=== PATIENT | female | born 1960 | race Caucasian/White ===

== ENCOUNTER 2019-01-12 15:30 | Outpatient (REF) | payer MEDICAID, SELFPAY ==
--- NOTE | 2019-01-12 15:00 | PAPFT_PTH ---
PATIENT: Reji Martini LOC: [facility] U#:[id number] AGE/SX: 58/F ROOM: RE01/12/[address]: Tawana Au : 1960 BED: DIS: 01/12/2019 SPEC #: [id number] RECD: 01/12/19 18:17 STATUS: KRUNAL REQ #: [id number] MALINDA: 01/12/19 15:[address]: Tawana Au DEPT: [facility] Cytology RECD BY: Andreea Laurent Tissues: 1 - CX/ENDOCX FOR PAP SMEARS Procedures: PAP THIN PREP/UVM Screening HPV DNA PROBE Comments: [id number]
== END 2019-01-12 15:50 ==
LOC: NCHCN 15:30
PROVIDERS: PCP Nurse Practitioner Family; Visit Provider Nurse Practitioner Family
DX: Z12.4 Encounter for screening for malignant neoplasm of cervix (principal); Z11.51 Encounter for screening for human papillomavirus (HPV); Z00.00 Encounter for general adult medical examination without abnormal findings
CPT/HCPCS: 88142; 87624

== ENCOUNTER 2019-01-24 12:23 | Outpatient (REF) | payer MEDICAID, SELFPAY ==
[2019-01-24 13:27] LABS: Calculated LDL 201 mg/dL; Cholesterol 295 mg/dL (50-200); Glucose 104 mg/dL (70-100); HDL Cholesterol 74 mg/dL (40-60); Triglyceride 103 mg/dL (30-150)
== END 2019-01-24 12:43 ==
LOC: NCHCN 12:23
PROVIDERS: PCP Nurse Practitioner Family; Visit Provider Nurse Practitioner Family
DX: Z13.1 Encounter for screening for diabetes mellitus (principal); Z13.220 Encounter for screening for lipoid disorders
CPT/HCPCS: 80061; 82947

== ENCOUNTER 2019-02-08 00:36 | Outpatient (CLI) | payer MEDICAID, SELFPAY ==
--- NOTE | 2019-02-08 12:43 | DI.MAMMO_ITS ---
EXAM: MG MAMMO SCREENING 60 MIN DUR CLINICAL HISTORY: SCREENING Z12.39, HAS IMPLANTS TECHNIQUE: Bilateral full field digital CC and MLO mammographic images with and without implant disp lacement were obtained with 3D tomosynthesis and utilizing computer aided detection (CAD). COMPARISON: No exams were available for comparison FINDINGS: Bilateral full field digital CC and MLO mammographic images with and without implant displacement wer e obtained with 3D tomosynthesis and utilizing computer aided detection (CAD). Masses/Architectural Distortion: None seen. Microcalcifications: No suspicious pleomorphic-type microcalcifications are seen. Skin thickening/Nipple Retraction: None. Implants: The implant capsules appear intact. An MRI can be considered for better evaluation of impl ant rupture. Impression: 1. No significant interval change with no specific features of malignancy noted. 2. Unless there is more urgent need, screening mammography is recommended, as per [place] [employer] guidelines. ACR BI-RAD Category- 1 Negative Breast Density - Category B - Scattered areas of fibroglandular density A negative radiographic report should not delay biopsy if a dominant or clinically suspicious mass is present. Up to ten percent of cancers are not identified on mammography. A negative report may reinforce clinical impression. Adenosis and dense breasts may obscure an underlying neoplasm. False positive reports average 6 to 10%. Patient will receive a letter notifying them of these results.
== END 2019-02-08 00:56 ==
PROVIDERS: PCP Nurse Practitioner Family; Visit Provider Nurse Practitioner Family
DX: Z12.31 Encounter for screening mammogram for malignant neoplasm of breast (principal); Z98.82 Breast implant status
CPT/HCPCS: 77063; 77067

== ENCOUNTER 2020-01-23 19:37 | Outpatient (REF) | payer SELFPAY ==
[2020-01-23 18:29] LABS: HCT 38.4 % (36.0-46.0); HGB 12.4 g/dL (11.2-15.7); MCH 28.8 pg (27.0-33.0); MCHC 32.3 % (32.0-36.0); MCV 89.3 fL (80-95); MPV 13.3 fL (8.0-11.0); Platelet Count 221 10^3/uL (130-400); RDW 13.2 % (11.7-14.6); RDW-SD 43.5 fL; WBC 4.99 10^3/uL (4.4-10.8)
[2020-01-23 18:34] LABS: Anion Gap 5.8 mmol/L (3-11); BUN 17 mg/dL (7-18); CO2 28.2 mmol/L (21.0-32.0); CREATININE 0.95 mg/dL (0.55-1.02); Calcium 9.3 mg/dL (8.5-10.1); Calculated LDL 219 mg/dL (<100); Chloride 105 mmol/L (98-107); Cholesterol 315 mg/dL (<200); Glucose 94 mg/dL (74-106); HDL Cholesterol 73 mg/dL (40-60); Potassium 4.5 mmol/L (3.5-5.1); Sodium 139 mmol/L (136-145); Triglyceride 119 mg/dL (<150)
== END 2020-01-23 19:57 ==
LOC: NCHCN 19:37
PROVIDERS: PCP Nurse Practitioner Family; Visit Provider Nurse Practitioner Family
DX: Z00.00 Encounter for general adult medical examination without abnormal findings (principal); E78.5 Hyperlipidemia, unspecified
CPT/HCPCS: 80048; 80061; 85027

== ENCOUNTER 2021-04-03 03:13 | Outpatient (CLI) | payer OTHER, SELFPAY ==
--- NOTE | 2021-04-03 08:00 | DI.MAMMO_ITS ---
Exam(s) US AXILLA LT MAMMO DIAGNOSTIC BI EXAM: MAMMO DIAGNOSTIC BI and U/S axilla LT CLINICAL HISTORY: left axillary mass,r22.32, implants. TECHNIQUE: Craniocaudal and mediolateral oblique Full Field Digital Mammography views with Computer Aided Diagnosis followed by Tomosynthesis and left axillary ultrasound. COMPARISON: Comparison with prior examinations. FINDINGS: Mammography/Tomosynthesis: Masses/Architectural Distortion: None seen. There are bilateral breast implants. Microcalcifictions: No suspicious pleomorphic-type are seen. Skin Thickening/Nipple Retraction: None. Left axillary US: Echotexture: Normal appearance of the glandular tissue. Shadowing: No suspicious foci. Cyst: None. Solid lesions: Lymph nodes are seen in the axilla. Several of the lymph nodes show normal sonographi yuliana benign appearance there is there is an enlarged lymph node measuring 2.7 x 1.6 cm which shows i ncreased echogenicity in the hilum with incoherent posterior shadowing. This can be seen in patients with silicone implants and may reflect current or prior rupture or microscopic leak. Ductal dilation: None. IMPRESSION: 1. No evidence of malignancy is noted. 2. Left axillary lymph nodes. There is an enlarged lymph node with a snowstorm appearance and incohe rent incoherent posterior shadowing. This can be seen in patients with silicone implants reflecting current or prior rupture or microscopic leak. 3. Unless there is more urgent need, follow-up screening mammography is recommended, as per [employer] [place] [employer] guidelines. 4. The findings were discussed with the patient on the date of the examination. BI-RADS Category 2 - Benign Findings Breast Density - Category B - Scattered areas of fibroglandular density Breast density Category C or D implies that the patient has dense breast tissue. Dense breast tissue can make it harder to find cancer on a mammogram. Dense breast tissue is also associated with an incr eased risk of breast cancer. This information about the result of the mammogram report was provided to the patient to raise their awareness. Use this report when you speak with the patient about their risks for breast cancer, which includes their family history. At that time, you may recommend additional screening tests (Ultrasoun d or MRI) as these tests may add significant information. A negative radiographic report should not delay biopsy if a dominant or clinically suspicious mass is present. Up to ten percent of cancers are not identified on mammography. A negative report may reinforce clinical impression. Adenosis and dense breasts may obscure an underlying neoplasm. False positive reports average 6 to 10%. Patient will receive a letter notifying them of these results.
== END 2021-04-03 03:33 ==
PROVIDERS: PCP Nurse Practitioner Family; Visit Provider Surgery
DX: R22.32 Localized swelling, mass and lump, left upper limb (principal); R22.30 Localized swelling, mass and lump, unspecified upper limb; Z98.82 Breast implant status; R59.0 Localized enlarged lymph nodes
CPT/HCPCS: 76642; 77062; 77066; G0279

== ENCOUNTER 2021-05-16 19:07 | Outpatient (REF) | payer OTHER, SELFPAY ==
[2021-05-16 15:47] LABS: HCT 39.3 % (36.0-46.0); HGB 12.5 g/dL (11.2-15.7); MCH 28.9 pg (27.0-33.0); MCHC 31.8 % (32.0-36.0); MCV 90.8 fL (80-95); Platelet Count 236 10^3/uL (130-400); RBC 4.33 10^6/uL (3.93-5.22); RDW 12.8 % (11.7-14.6); RDW-SD 42.8 fL; WBC 5.68 10^3/uL (4.4-10.8)
[2021-05-16 16:03] LABS: Anion Gap 8.6 mmol/L (3-11); BUN 16 mg/dL (7-18); CO2 27.4 mmol/L (21.0-32.0); CREATININE 0.9 mg/dL (0.55-1.02); Calcium 9.3 mg/dL (8.5-10.1); Calculated LDL 233 mg/dL (<100); Chloride 105 mmol/L (98-107); Cholesterol 335 mg/dL (<200); Glucose 89 mg/dL (74-106); HDL Cholesterol 86 mg/dL (40-60); Potassium 4.9 mmol/L (3.5-5.1); Sodium 141 mmol/L (136-145); Triglyceride 82 mg/dL (<150)
[2021-05-16 16:07] LABS: Hemoglobin A1C 5.8 % (<5.7)
== END 2021-05-16 19:08 | disposition home or self-care (01) ==
LOC: NCHCN 19:07
PROVIDERS: PCP Nurse Practitioner Family; Visit Provider Nurse Practitioner Family
DX: E78.5 Hyperlipidemia, unspecified (principal); R73.03 Prediabetes; Z00.00 Encounter for general adult medical examination without abnormal findings
CPT/HCPCS: 80048; 80061; 85027; 83036

== ENCOUNTER 2022-02-17 17:37 | Outpatient (REF) | payer OTHER, SELFPAY ==
[2022-02-17 18:32] LABS: Calculated LDL 209 mg/dL (<100); Cholesterol 313 mg/dL (<200); HDL Cholesterol 83 mg/dL (40-60); Triglyceride 108 mg/dL (<150)
[2022-02-17 18:45] LABS: Hemoglobin A1C 6.2 % (<5.7)
== END 2022-02-17 17:38 | disposition home or self-care (01) ==
LOC: NCHCN 17:37
PROVIDERS: PCP Nurse Practitioner Family; Visit Provider Nurse Practitioner Family
DX: R73.03 Prediabetes (principal); E78.5 Hyperlipidemia, unspecified
CPT/HCPCS: 80061; 83036

== ENCOUNTER 2022-04-17 00:08 | Outpatient (CLI) | payer OTHER, SELFPAY ==
--- NOTE | 2022-04-17 | DI.MAMMO_ITS ---
Exam(s) MAMMO SCREENING EXAM: MAMMO SCREENING CLINICAL HISTORY: SCREENING, Z12.39 TECHNIQUE: Bilateral full field digital CC and MLO mammographic images were obtained with 3D tomosyn thesis and utilizing computer aided detection (CAD). COMPARISON: Available for comparison. FINDINGS: There has been interval removal of the patient's bilateral breast implants. Masses/Architectural Distortion: None seen. Microcalcifications: No suspicious pleomorphic-type are seen. Skin Thickening/Nipple Retraction: None. IMPRESSION: 1. No significant interval change with no specific features of malignancy noted. 2. Unless there is more urgent need, screening mammography is recommended, as per [place] [employer] guidelines. BI-RADS Category 1 - Negative Breast Density - Category B - Scattered areas of fibroglandular density Breast density category C or D implies that the patient has dense breast tissue. Dense breast tissue is very common and is not abnormal but dense breast tissue can make it harder to find cancer on a ma mmogram. Also, dense breast tissue may increase their breast cancer risk. This information about the result of the mammogram report was provided to the patient to raise their awareness. Use this report when you speak with the patient about their risks for breast cancer, which includes their family hist ory. At that time, you may recommend for more screening tests (Ultrasound or MRI) as they might be us eful based on their risk. A negative radiographic report should not delay biopsy if a dominant or clinically suspicious mass is present. Up to ten percent of cancers are not identified on mammography. A negative report may reinforce clinical impression. Adenosis and dense breasts may obscure an underlying neoplasm. False positive reports average 6 to 10%. Patient will receive a letter notifying them of these results.
== END 2022-04-17 00:28 ==
LOC: DI 00:08
PROVIDERS: PCP Nurse Practitioner Family; Visit Provider Nurse Practitioner Family
DX: Z12.31 Encounter for screening mammogram for malignant neoplasm of breast (principal); R92.8 Other abnormal and inconclusive findings on diagnostic imaging of breast
CPT/HCPCS: 77063; 77067

== ENCOUNTER 2022-05-27 16:59 | Outpatient (REF) | payer OTHER, SELFPAY ==
[2022-05-27 15:22] LABS: Calculated LDL 84 mg/dL (<100); Cholesterol 177 mg/dL (<200); HDL Cholesterol 76 mg/dL (40-60); Triglyceride 86 mg/dL (<150)
== END 2022-05-27 17:00 | disposition home or self-care (01) ==
LOC: NCHCN 16:59
PROVIDERS: PCP Nurse Practitioner Family; Visit Provider Nurse Practitioner Family
DX: E78.5 Hyperlipidemia, unspecified (principal)
CPT/HCPCS: 80061

== ENCOUNTER 2022-12-14 18:39 | Outpatient (REF) | payer OTHER, SELFPAY ==
[2022-12-14 22:55] LABS: Anion Gap 5.7 mmol/L (3-11); BUN 15 mg/dL (7-18); CO2 31.3 mmol/L (21.0-32.0); CREATININE 0.9 mg/dL (0.55-1.02); Calcium 9.9 mg/dL (8.5-10.1); Chloride 102 mmol/L (98-107); Cholesterol 311 mg/dL (<200); Estimated GFR 72.28 (mL/min/1.73m2); Glucose 102 mg/dL (74-106); HDL Cholesterol 66 mg/dL (40-60); Potassium 4.4 mmol/L (3.5-5.1); Sodium 139 mmol/L (136-145); Triglyceride 434 mg/dL (<150)
[2022-12-14 23:22] LABS: LDL CHOLESTEROL 158 mg/dL (<100)
== END 2022-12-14 18:40 | disposition home or self-care (01) ==
LOC: NCHCN 18:39
PROVIDERS: PCP Nurse Practitioner Family; Visit Provider Nurse Practitioner Family
DX: E78.5 Hyperlipidemia, unspecified (principal); R73.03 Prediabetes; G47.00 Insomnia, unspecified
CPT/HCPCS: 80048; 80061; 83721

== ENCOUNTER 2023-06-10 13:17 | Outpatient (REF) | payer OTHER, SELFPAY ==
[2023-06-10 21:51] LABS: Calculated LDL 177 mg/dL (<100); Cholesterol 267 mg/dL (<200); HDL Cholesterol 64 mg/dL (40-60); Triglyceride 134 mg/dL (<150)
[2023-06-10 22:09] LABS: Hemoglobin A1C 6.1 % (<5.7)
== END 2023-06-10 13:18 | disposition home or self-care (01) ==
LOC: NCHCN 13:17
PROVIDERS: Referring Provider Nurse Practitioner Family; Visit Provider Nurse Practitioner Family
DX: R73.03 Prediabetes (principal); E78.5 Hyperlipidemia, unspecified
CPT/HCPCS: 80061; 83036

== ENCOUNTER → 2023-07-12 05:16 | Outpatient (CLI) | payer OTHER, SELFPAY ==
--- NOTE | 2023-07-12 | DI.MAMMO_ITS ---
Exam(s) MAMMO SCREENING EXAM: MAMMO SCREENING CLINICAL HISTORY: SCREENING,Z12.39 TECHNIQUE: Mammograms were interpreted according to the usual protocol including computer analysis w [employer] CAD system, tomosynthesis and C-view imaging. COMPARISON: 2015 through 2022 FINDINGS: The breasts are composed of heterogeneously dense fibroglandular densities, Breast Density category C . No suspicious masses or suspicious microcalcifications are seen. No skin thickening is seen. Again noted are 2 areas of increased density in the left axillary region likely related to silicone from prior breast implants, removed in 2021. There has been no significant change from prior exams. IMPRESSION: BI-RADS category 2, negative mammogram with benign findings. Yearly screening mammography is recommended. Breast Density Category C, heterogeneously Dense. The mammogram demonstrates the patient's breast tissue is dense. Dense breast tissue is very common a nd is not abnormal but dense breast tissue can make it harder to find cancer on a mammogram. Also, de nse breast tissue may increase breast cancer risk. This information about the result of the mammogram report was provided to the patient to raise their awareness. Use this report when you speak with the patient about their risks for breast cancer, which includes their family history. At that time, you may recommend additional screening tests (Ultrasound or MRI) as they might be useful based on their r isk. A negative radiographic report should not delay biopsy if a dominant or clinically suspicious mass is present. Up to ten percent of cancers are not identified on mammography. A negative report may reinforce clinical impression. Adenosis and dense breasts may obscure an underlying neoplasm. False positive reports average 6 to 10%.
== END ==
PROVIDERS: Visit Provider Nurse Practitioner Family
DX: Z12.31 Encounter for screening mammogram for malignant neoplasm of breast (principal)
CPT/HCPCS: 77063; 77067

== ENCOUNTER 2023-10-20 06:02 | Day surgery (SDC) | payer OTHER, SELFPAY ==
--- NOTE | 2023-10-19 07:52 | LYM_PTH ---
PATIENT: Reji Martini LOC: [facility] U#:[id number] AGE/SX: 63/F ROOM: RE10/20/[address]: Aly Linares MD : 1960 BED: DIS: 10/20/2023 SPEC #: [id number] RECD: 10/20/23 12:50 STATUS: KRUNAL REQ #: [id number] MALINDA: 10/19/23 07:[address]: Aly Linares DEPT: Surgical Specimen RECD BY: Andreea Laurent ENTERED: 10/20/23 12:50 SP TYPE: LYM OTHR DR: JUAN J DAVE NP Tissues: 1 - LYMPH NODE BIOPSY Procedures: IMMUNOPEROXIDASE STAIN GROSS AND MICRO LEVEL 5 Comments: [id number]
--- NOTE | 2023-10-19 14:00 | W.PM.DSUDISC ---
Date of service: 10/20/23 Time of Service: 08:17 Discharge Plan Disposition Patient Disposition: Home Condition: Good Discharge Details Reason For Visit: Excision of left axillary mass Attending Provider: Aly Linares Primary Care Provider: JUAN J DAVE Home Meds and New Rx's Prescriptions: Continued zolpidem [Ambien] 5 mg tablet 5 mg PO QHS PRN ezetimibe 10 mg tablet 10 mg PO DAILY Discharge Instructions Additional Instructions: Reji, we were able to perform your procedure today just like we talked about. I was able to find the lump in your armpit, and completely remove it. Clinically, it appears to be some swollen lymph nodes. But I will certainly send this off to pathology for them to examine in more detail to provide a definitive diagnosis. The removal itself went very smoothly. Expect to have some swelling in your armpit, and perhaps some bruising, that may even extend down into your breast. That is extremely common. You have a Band-Aid on the surface, and all of the stitches are underneath of your skin and will be absorbed by your body. Please leave the Band-Aid in place until tomorrow. At that point, you can remove it, wash the incision with soap and water, and apply a new Band-Aid if needed. I have taken the liberty of scheduling a follow-up visit in our office on November 03 at 3:15 PM. I will not be available at that time, but one of my partners will take great care of you. Certainly, if the pathology shows anything worrisome, or that needs any other treatments, we will be in touch as soon as we have that information. 1. Resume all of your regular medications. 2. Alternate heating pads and ice packs as needed for pain 3. Alternate [id number]-irq-oismyil Tylenol and ibuprofen every 6 hours for the first 2 days, then use as needed. 4. Leave bandage in place for 24 hours, then remove. 5. Shower with warm soapy water. Pat dry. Use a bandaid if needed to protect your clothing. 6. No soaking or tub baths until I see you in the office. 7. No heavy lifting until I see you in the office. 8. Call the office (or go directly to the emergency room after hours) if you notice any of the following: Develop chills (warm to touch), or if you have a thermometer and your temperature is above 101 Difficulty breathing or difficultly swallowing Persistent vomiting Any bleeding ? exceeding one tablespoon 9. Call your physician if the site where your intravenous was started becomes red, swollen, painful, and warm to touch. Activity:: Activity as Tolerated Remove Dressings/Wound Care:: 24 hours Shower/Bathe:: 24 hours Diet:: As Tolerated Discharge Orders Discharge Orders: Discharge Order (Routine); Ordered 10/19/23 Ordered By: Aly Linares DS: Diagnosis Discharge Diagnosis (1) Axillary mass: Status: Acute Asessment and Plan: Status post excisional biopsy, follow-up on pathology and outpatient office visit
--- NOTE | 2023-10-19 14:03 | W.PREOPHP ---
Assessment and Plan Assessment and plan (1) Axillary mass: Status: Acute Assessment and plan: We reviewed the plan for excisional biopsy of left axillary mass, or at the very least incisional biopsy with sampling. I think she has a good understanding of all of this, what to expect. She was able to ask any other questions today. We can move forward with surgery as planned. Qualifiers: Laterality: left Qualified Code(s): R22.32 - Localized swelling, mass and lump, left upper limb History of Present Illness History of Present Illness Chief Complaint: Left axillary mass Narrative: Reji has a tender mass in the left axilla. She thinks it has been there for about 2 years, around the time that she had cosmetic breast implants removed. As best I understand, the implants were removed because of capsular disruption. Since then, she has noticed the lump in her armpit. It does tend to become more painful from time to time, especially associated with exercise. She denies any other lymphadenopathy anywhere else. Since her last visit, there have been no major changes with regards to the interval history, or physical exam. PFSH All Active Problems Pain in axilla (Acute) Ruptured silicone breast implant (Acute) Prediabetes (Acute) Axillary mass (Acute) Medical History History of removal of breast implant (~10/06/21) Hyperlipidemia Chronic headaches Chronic insomnia Surgical History Previous section S/P bilateral breast implants Social History Smoking/Tobacco Use Status: Former Tobacco Use Quit Date: 03/29/08 Smoking risk assessment performed?: Yes Alcohol Intake: current Alcohol Intake frequency: holidays/special occasions only Alcohol type: wine Drug use: Never Substance use type: does not use Housing: house Current gender identity: female Additional Social history: UTAP Meds Allergies and Home Medications Allergies Allergy/AdvReac Type Severity Reaction Status Date / Time No Known Allergies Allergy Verified 10/20/23 06:34 Home Medications ?Medication ?Instructions ?Recorded ?Confirmed ?Type zolpidem 5 mg tablet (Ambien) 5 mg PO QHS PRN 03/18/21 10/20/23 History ezetimibe 10 mg tablet 10 mg PO DAILY 06/28/23 10/20/23 History Exam Const General: cooperative, healthy appearing and not in acute distress Neck Neck: normal visual inspection, no lymphadenopathy and supple Thyroid: thyroid normal Resp Effort & Inspection: normal respiratory effort Auscultation: clear to auscultation bilaterally Cardio Jugular venous pressure: no JVD Rate: regular rate Rhythm: regular rhythm Heart Sounds: S1 normal and S2 normal Neuro General: patient alert, patient awake and patient oriented x3 Extrem Other: Firm, slightly mobile mass in the left axilla. Psych Appearance: grossly normal
--- NOTE | 2023-10-19 14:03 | W.PM.OP ---
Date of service: 10/20/23 Time of Service: 08:23 Operative Note Operative Note DATE OF PROCEDURE: 10/20/23 PRE-OP DIAGNOSIS: Left axillary mass POST-OP DIAGNOSIS: same PROCEDURE: Excisional biopsy of left axillary mass with primary closure SURGEON: Aly Linares THRESHING DEPARTMENT SUPERVISOR: Carla Valente ANESTHESIA TYPE: Local By Surgeon and General LMA/ETT Refer to Anesthesia Record ESTIMATED BLOOD LOSS: 10 PATHOLOGY: other (Left axillary mass) COMPLICATIONS: None Patient was transported to: PACU Patient's condition: stable Indications: Reji is a 63-year-old woman with a tender left axillary mass. Findings: Left axillary mass clinically suggestive of lymphadenopathy Procedure Description: After the induction of general endotracheal anesthesia, the left arm was abducted at the shoulder. This was placed on an armboard, and supported at the wrist level. Great care was taken to make sure that it was supported and padded appropriately. I then prepped and draped the left axilla. I anesthetized the skin, and I made an incision in the armpit just behind to the anterior axillary line. I dissected down through the subcutaneous fat towards the palpable mass. This seem to be inferior to the axillary vein, and between the thoracodorsal bundle and the pectoralis minor. As I dissected away the surrounding axillary fat, there was a well-circumscribed slightly nodular bundle of soft tissue. Had clinical features that seem consistent with at least 1, or more likely 2-3 lymph nodes. Great care was taken to dissect this away from the surrounding soft tissue. The deeper layers were controlled with a medium clip continuous process tanner rotary drum. Cautery was used to from the surrounding tissues and is passed off the field as a left axillary mass. Small amount of bleeding from the posterior tissue was easily controlled with [id number] Vicryl suture surgical site was then irrigated. Electrocautery was used to control some tiny blood vessels. The wound was irrigated again, and appeared hemostatic. Deep layer was closed with interrupted 3-0 Vicryl stitches. The superficial layer was then closed with interrupted stitches as well. The skin layer was closed with a running subcuticular stitch. Bandages were applied, the patient was allowed awaken from anesthesia and transferred to the recovery room.
[2023-10-20] VITALS (27 sets, daily range): BP systolic 105–126; BP diastolic 48–76; PULSE 61–87; RESP 6–28; TEMP 36–36.4; O2SAT 85–100; BMI 23.8
[2023-10-20] MEDS: Celecoxib 200 MG CAP 400 MG PO (06:47)
[2023-10-20] MEDS: Gabapentin 300 MG CAP 600 MG PO (06:47)
[2023-10-20] MEDS: Acetaminophen 500 MG TAB 1000 MG PO (06:47)
--- NOTE | 2023-10-20 06:49 | W.ANESPRE ---
General Info Date of Service Date Performed: 10/20/23 Height: 5 ft 5 in Weight: 65 kg Body Mass Index (BMI): 23.8 Surgical Procedure: Operation Date: 10/20/23 07:40 Proposed Procedure Side Surgeon p Excisional Biopsy Axillary Mass Left Aly Linares MD Meds Allergies and Home Medications Allergies Allergy/AdvReac Type Severity Reaction Status Date / Time No Known Allergies Allergy Verified 10/20/23 06:34 Home Medication ?Medication ?Instructions ?Recorded zolpidem 5 mg tablet (Ambien) 5 mg PO QHS PRN 03/18/21 ezetimibe 10 mg tablet 10 mg PO DAILY 06/28/23 Current Visit Medications: Current Medications Generic Name Dose Route Start Last Admin Trade Name Freq PRN Reason Stop Dose Admin Acetaminophen 1,000 mg 10/20/23 06:00 10/20/23 06:47 Acetaminophen 500 Mg Tab PO 10/20/23 23:59 1,000 mg PREOP GALINA Administration Celecoxib 400 mg 10/20/23 06:00 10/20/23 06:47 Celecoxib 200 Mg Cap PO 10/20/23 23:59 400 mg PREOP GALINA Administration Gabapentin 600 mg 10/20/23 06:00 10/20/23 06:47 Gabapentin 300 Mg Cap PO 10/20/23 23:59 600 mg PREOP GALINA Administration Hydromorphone HCl 2 mg 10/19/23 14:04 Hydromorphone 2 Mg Tab PO 11/18/23 14:03 Q4H PRN PRN Pain Ringer's Solution 1,000 mls @ 80 mls/hr 10/20/23 06:00 IV 10/20/23 23:59 INFUSION GALINA Cefazolin Sodium/Dextrose 2 gm in 50 mls @ 100 mls/hr 10/20/23 06:00 Ancef Duplex IVPB 10/20/23 23:59 PREOP GALINA IV Miscellaneous Supplies 1 each 10/20/23 06:00 Iv Access IV 10/20/23 23:59 DIRECTED GALINA Sodium Chloride 0 ml 10/20/23 06:00 Normal Saline Flush 10 Ml Syr IV 10/20/23 23:59 PRN PRN Sodium Chloride 0 ml 10/20/23 06:00 Normal Saline 10 Ml Vial IJ 10/20/23 23:59 DIRECTED PRN Sterile Water 0 ml 10/20/23 06:00 Water,Injection,Sterile 10 Ml Vial IJ 10/20/23 23:59 DIRECTED PRN Tramadol HCl 50 mg 10/19/23 14:04 Tramadol 50 Mg Tab PO 11/18/23 14:03 Q6H PRN PRN Pain PFSH Active Problems Active Problems: Problem Status Onset Code Pain in axilla Acute M79.629 Ruptured silicone breast implant Acute T85.43XA Prediabetes Acute R73.03 Axillary mass Acute R22.30 Medical History Medical History History of removal of breast implant (~10/06/21) Hyperlipidemia Chronic headaches Chronic insomnia Surgical History Surgical History Previous section S/P bilateral breast implants Tobacco Smoking/Tobacco Use Status: Former Tobacco Use Alcohol Alcohol Intake: current Alcohol intake frequency: holidays/special occasions only Alcohol type: wine Substance Use Substance use: Never Substance use type: does not use Vital Signs and Lab Results Vital Signs Most Recent Vital Signs in EMR: Most Recent Vital Signs Temp Pulse Resp BP Pulse Ox 36.4 C L 86 16 126/74 99 10/20/23 06:37 10/20/23 06:37 10/20/23 06:37 10/20/23 06:37 10/20/23 06:37 Lab Results Blood Type / Crossmatch: No Data to Display Complete Blood Count: No Data to Display Complete Metabolic Panel: No Data to Display Liver Function Panel: No Data to Display Coagulation Panel: No Data to Display Cardiac Panel: No Data to Display Arterial Blood Gas: No Data to Display Venous Blood Gas: No Data to Display Pancreas Panel: No Data to Display Thyroid Panel: No Data to Display Infectious Disease: No Data to Display Blood Cultures: No Data to Display Toxicology Panel: No Data to Display Anesthesia Assessment and Plan Anesthesia History Personal History: No History of Anesthesia Complications Family History: Family History Unknown Exercise Tolerance Exercise Tolerance: Metabolic Equivalents>4 Pertinent Negatives Pertinent Negatives: No Symptoms of GERD Cardiac & Pulmonary Exam Cardiac Exam: Normal S1/S2 Heart Sounds Pulmonary Exam: Clear Bilateral Breath Sounds Implantable Cardiac Device Does patient have a Pacemaker or an ICD?: No Airway Exam Known Difficult Airway: No Mallampati Class: 2 Mouth Opening: Normal (> 3cm) Thyromental Distance: Greater than 3 cm Neck Range of Motion: Full ROM Neck Circumference: Normal Teeth Condition: Normal Dentition and Removable Dentures/Plates Upper (left at home) ASA Classification ASA Score: ASA 2 Emergency Case?: No NPO Status NPO Status: NPO Clears >2 hours, Solids >8 hours Anesthesia Plan Resuscitation Status: Full Code Anesthesia Technique: General Anesthesia Airway Planned: Endotracheal Tube Monitors Used: Standard Monitors
[2023-10-20] MEDS: Lactated Ringers 1,000 ML 80 ML IV (07:04)
[2023-10-20] MEDS: ceFAZolin 2 GM/50 ML BAG IVPB (07:37)
[2023-10-20] MEDS: Bupivacaine 0.5% Pres-Free W/EPI 30 ML VIAL (07:49)
[2023-10-20] MEDS: fentaNYL 100 MCG/2 ML VIAL IVP ×2 (08:47→08:59)
[2023-10-20] MEDS: traMADol 50 MG TAB PO (09:57)
--- NOTE | 2023-10-20 10:06 | W.ANESPOSTOP ---
Postoperative Evaluation Date, Time and Location Date Performed: 10/20/23 Time Performed: 10:07 Patient Location: Day Surgery Unit Vital Signs Most Recent Imported Vital Signs: Most Recent Vital Signs Temp Pulse Resp BP Pulse Ox 36.2 C L 68 16 116/75 100 10/20/23 10:00 10/20/23 10:00 10/20/23 10:00 10/20/23 10:00 10/20/23 10:00 Pain Score Most Recent Pain Score: Most Recent Pain Score Pain Level 5 10/20/23 10:00 Assessment Mental Status: Awake (Alert & Oriented to Patient Baseline) Airway and Respiratory Function: Patent airway with normal (patient baseline) respiratory exam Cardiovascular Function: Hemodynamically Stable Hydration Status: Adequately Hydrated Nausea & Vomiting: No Nausea or Vomiting Pain: Pain is tolerable per patient (medicated) Peripheral Nerve Block: Patient did not receive a nerve block
== END 2023-10-20 11:43 | disposition home or self-care (01) ==
PROVIDERS: PCP Nurse Practitioner Family; Visit Provider Surgery
PROC: (CPT 24071; principal; 2023-10-20 07:30)
DX: R22.32 Localized swelling, mass and lump, left upper limb (principal); R73.03 Prediabetes; E78.5 Hyperlipidemia, unspecified; T85.43XA Leakage of breast prosthesis and implant, initial encounter
CPT/HCPCS: 24071; 88305; 88307; 88361; J0690; J1100; J2001; J2250; J2405; J2704; J3010

== ENCOUNTER 2023-12-06 06:11 | Day surgery (SDC) | payer OTHER, SELFPAY ==
--- NOTE | 2023-12-05 10:09 | PDOC.DSDIS_ITS ---
Date of service: 12/06/23 Time of Service: 07:44 Discharge Plan Disposition Patient Disposition: Home Condition: Good Discharge Details Reason For Visit: screening colonoscopy Attending Provider: lAy Linares Primary Care Provider: JUAN J DAVE Home Meds and New Rx's Prescriptions: Continued zolpidem [Ambien] 5 mg tablet 5 mg PO QHS PRN ezetimibe 10 mg tablet 10 mg PO DAILY Discontinued bisacodyl [Dulcolax (bisacodyl)] 5 mg tablet,delayed release (DR/EC) 5 mg PO ONCE Qty: 4 0RF Rx Instructions: Take per colonoscopy instructions provided by ordering providers office polyethylene glycol 3350 17 gram/dose powder 17 g PO ONCE Qty: 238 0RF Rx Instructions: Take per colonoscopy instructions provided by ordering providers office No Action acetaminophen [Acetaminophen Extra Strength] 500 mg tablet 500 mg PO ONCE Discharge Instructions Instructions: Diverticulosis Additional Instructions: Aydeairogelio, I hope you are comfortable during the procedure today. Everything went very smoothly. Your prep was excellent and I could see everything fine. I did not see any signs of tumors, polyps, or anything particularly worrisome. Incidentally, you do have a little bit of diverticulosis. Diverticula are weak spots in the muscular part of the colon wall. They typically accumulate as we get older. They can get infected or inflamed, and that is typically experienced as sharp pain, usually on the left side of the abdomen, or down across the middle part. It usually accompanied by fevers and not feeling well in general. Usually, patients are treated with antibiotics during those episodes, which we called diverticulitis. I hope you are is never bother you. I did attach a little bit of information here about diverticulosis. My basic recommendation for patients is to maintain a diet that is rich in fiber and to stay well- hydrated. If you have any questions at all, please do not hesitate to ask. Otherwise, you will need another colonoscopy in 10 years. 1. If tolerated, consume a soft, low fiber diet for 1-2 days. 2[address] Do not drive, drink alcohol, operate machinery, make critical decisions, or do activities that require coordination or balance for 24 hours. 3. Because air was put into your colon during the procedure, expelling air from your rectum (passing gas or farting) is normal. 4. You may not have a bowel movement for 1-3 days because of the colonoscopy prep. This is normal. 5. Go directly to the emergency room if you notice any of the following: Develop chills (warm to touch), or if you have a thermometer and your temperature is above 101 Difficulty breathing or difficultly swallowing Persistent vomiting Severe abdominal pain, other than gas cramps Severe chest pain Black, tarry stools Any bleeding ? exceeding one tablespoon 6. Call your physician if the site where your intravenous was started becomes red, swollen, painful, and warm to touch. 7. Your physician has reviewed your pre-procedure medications. Please continue to take those medications as previously ordered. You will be given specific information/education regarding any changes to your medications before leaving. Stand Alone Forms: Anesthesia Discharge Inst., Colonoscopy Post Instructions, Benjamin Martinez (DSU) Activity:: Activity as Tolerated Diet:: As Tolerated Discharge Orders Discharge Orders: Discharge Order (Routine); Ordered 12/05/23 Ordered By: Aly Linares DS: Diagnosis Discharge Diagnosis (1) Encounter for screening colonoscopy: Status: Acute Asessment and Plan: Diverticulosis otherwise negative screening colonoscopy; follow-up in 10 years
--- NOTE | 2023-12-05 10:10 | COLE_ITS ---
Date of service: 12/06/23 Time of Service: 07:46 Colonoscopy Report Date of procedure: 12/06/23 Pre-op diagnosis general: screening colonoscopy Post-op diagnosis procedure note: other (Negative screening colonoscopy) Procedure: colonoscopy Surgeon: Aly Linares Anesthesia Type: General:No Airway Estimated blood loss (mL): 0 Pathology: none sent Complications: None Disposition: same day Indications: Reji is a 63 year olf woman who needs a screening colonoscopy Prep: Miralax/Dulcolax Procedure Start Time: 07:25 Procedure End Time: 07:37 Retraction Time: 6 Findings: Diverticulosis Procedure Description: After the induction of monitored anesthetic care, and with the patient in left lateral decubitus position, I began by performing an external anorectal exam.? Perineum and skin were normal, as was the anal verge.? There was no evidence of external hemorrhoids.? Next, I performed a digital rectal exam.? I did not appreciate any abnormal findings.? Next, I advanced a colonoscope into the rectal vault.? I performed retroflexion.? This appeared normal.? Using insufflation, I then advanced the colonoscope beyond the rectal folds and into the sigmoid colon before advancing towards the cecum.? There was some sigmoid di verticulosis.? The scope was noted to be in the cecum by identification of the ileocecal valve and appendiceal orifice.? I then began withdrawing the colonoscope using repeated irrigation as necessary for full evaluation of the colonic mucosa. There were some occasional diverticula in the ascending and transverse colon. ?Once the scope was withdrawn to the level of the rectum, great care was taken to examine portions of the rectal folds.? Finally, the scope was withdrawn and the patient was brought to the same-day surgery recovery unit as the anesthetic wore off. ?The findings and instructions were shared with the patient prior to discharge. [place] Bowel Prep [place] Bowel Prep Right Colon: 3 Left Colon: 3 Transverse Colon: 3 Total Score: 9
[2023-12-06 06:30] VITALS: BP 153/74; PULSE 81; RESP 16; TEMP 36.5; O2SAT 99
[2023-12-06] MEDS: Lactated Ringers 1,000 ML 80 ML IV (06:50)
[2023-12-06 06:55] VITALS: BMI 23.5
--- NOTE | 2023-12-06 06:55 | W.ANESPRE ---
General Info Date of Service Date Performed: 12/06/23 Height: 5 ft 5 in Weight: 64.1 kg Body Mass Index (BMI): 23.5 Surgical Procedure: Operation Date: 12/06/23 07:35 Proposed Procedure Side Surgeon elvis Linares MD Meds Allergies and Home Medications Allergies Allergy/AdvReac Type Severity Reaction Status Date / Time No Known Allergies Allergy Verified 12/06/23 06:34 Home Medication ?Medication ?Instructions ?Recorded zolpidem 5 mg tablet (Ambien) 5 mg PO QHS PRN 03/18/21 ezetimibe 10 mg tablet 10 mg PO DAILY 06/28/23 acetaminophen 500 mg tablet 500 mg PO ONCE 12/06/23 (Acetaminophen Extra Strength) Current Visit Medications: Current Medications Generic Name Dose Route Start Last Admin Trade Name Freq PRN Reason Stop Dose Admin Ringer's Solution 1,000 mls @ 80 mls/hr 12/06/23 06:00 IV 01/02/24 23:59 INFUSION COUNT INCLUDES THE [facility] IV Miscellaneous Supplies 1 each 12/06/23 06:00 Iv Access IV 01/02/24 23:59 DIRECTED GALINA Ondansetron HCl 4 mg 12/05/23 10:08 Ondansetron 4 Mg/2 Ml Vial IVP 01/04/24 10:07 Q4H PRN PRN Nausea / Vomiting Sodium Chloride 0 ml 12/06/23 06:00 Normal Saline Flush 10 Ml Syr IV 01/02/24 23:59 PRN PRN Sodium Chloride 0 ml 12/06/23 06:00 Normal Saline 10 Ml Vial IJ 01/02/24 23:59 DIRECTED PRN Sterile Water 0 ml 12/06/23 06:00 Water,Injection,Sterile 10 Ml Vial IJ 01/02/24 23:59 DIRECTED PRN PFSH Active Problems Active Problems: Problem Status Onset Code Encounter for screening colonoscopy Acute Z12.11 Complication associated with silicone gel-filled breast implant Acute T85.9XXA Adverse effect of silicone Acute T49.3X5A 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 reports vomitting Surgical History Surgical History Hx of excision of mass (~09/2023) axillary mass Previous section S/P bilateral breast implants and removal Tobacco Smoking/Tobacco Use Status: Former Tobacco Use Alcohol Alcohol Intake: current Alcohol intake frequency: holidays/special occasions only Alcohol type: wine Substance Use Substance use: Never Substance use type: does not use Details: unknown alcohol Vital Signs and Lab Results Vital Signs Most Recent Vital Signs in EMR: Most Recent Vital Signs Temp Pulse Resp BP Pulse Ox 36.5 C 81 16 153/74 H 99 12/06/23 06:30 12/06/23 06:30 12/06/23 06:30 12/06/23 06:30 12/06/23 06:30 Lab Results Blood Type / Crossmatch: No Data to Display Complete Blood Count: No Data to Display Complete Metabolic Panel: No Data to Display Liver Function Panel: No Data to Display Coagulation Panel: No Data to Display Cardiac Panel: No Data to Display Arterial Blood Gas: No Data to Display Venous Blood Gas: No Data to Display Pancreas Panel: No Data to Display Thyroid Panel: No Data to Display Infectious Disease: No Data to Display Blood Cultures: No Data to Display Toxicology Panel: No Data to Display Anesthesia Assessment and Plan Anesthesia History Personal History: PONV (Possible) Family History: No Family History of Anesthesia Complications Exercise Tolerance Exercise Tolerance: Metabolic Equivalents>4 Pertinent Negatives Pertinent Negatives: No Symptoms of GERD, No Major Cardiovascular Symptoms or Complaints, No Major Pulmonary Symptoms or Complaints and No History of CVA/TIA Cardiac & Pulmonary Exam Cardiac Exam: Normal S1/S2 Heart Sounds Pulmonary Exam: Clear Bilateral Breath Sounds Implantable Cardiac Device Does patient have a Pacemaker or an ICD?: No Airway Exam Known Difficult Airway: No Mallampati Class: 2 Mouth Opening: Normal (> 3cm) Thyromental Distance: Greater than 3 cm Neck Range of Motion: Full ROM Neck Circumference: Normal Teeth Condition: Normal Dentition and Removable Dentures/Plates Upper (left at home) ASA Classification ASA Score: ASA 2 Emergency Case?: No NPO Status NPO Status: NPO Clears >2 hours, Solids >8 hours Anesthesia Plan Resuscitation Status: Full Code Anesthesia Technique: General Anesthesia Airway Planned: Natural Airway Monitors Used: Standard Monitors
[2023-12-06 07:43] VITALS: BP 105/66; PULSE 78; RESP 16; TEMP 36.4; O2SAT 98
--- NOTE | 2023-12-06 07:55 | W.ANESPOSTOP ---
Postoperative Evaluation Date, Time and Location Date Performed: 12/06/23 Time Performed: 07:44 Patient Location: Day Surgery Unit Vital Signs Most Recent Imported Vital Signs: Most Recent Vital Signs Temp Pulse Resp BP Pulse Ox 36.4 C L 78 16 105/66 98 12/06/23 07:43 12/06/23 07:43 12/06/23 07:43 12/06/23 07:43 12/06/23 07:43 Pain Score Most Recent Pain Score: Most Recent Pain Score Pain Level 0 12/06/23 07:43 Assessment Mental Status: Awake (Alert & Oriented to Patient Baseline) Airway and Respiratory Function: Patent airway with normal (patient baseline) respiratory exam Cardiovascular Function: Hemodynamically Stable Hydration Status: Adequately Hydrated Nausea & Vomiting: No Nausea or Vomiting Pain: Pt. Denies Any Pain Peripheral Nerve Block: Patient did not receive a nerve block
[2023-12-06 08:13] VITALS: BP 121/68; PULSE 77; RESP 16; TEMP 36.2; O2SAT 99
== END 2023-12-06 08:27 | disposition home or self-care (01) ==
PROVIDERS: PCP Nurse Practitioner Family; Visit Provider Surgery
PROC: 0DJD8ZZ Inspection of Lower Intestinal Tract, Via Natural or Artificial Opening Endoscopic (ICD-10-PCS; CPT 45378; principal; 2023-12-06 07:30)
DX: Z12.11 Encounter for screening for malignant neoplasm of colon (principal); K57.30 Diverticulosis of large intestine without perforation or abscess without bleeding
CPT/HCPCS: 45378; J2704

== ENCOUNTER 2023-12-28 17:47 | Outpatient (REF) | payer OTHER, SELFPAY ==
[2023-12-28 18:56] LABS: Calculated LDL 222 mg/dL (<100); Cholesterol 334 mg/dL (<200); HDL Cholesterol 77 mg/dL (40-60); Triglyceride 177 mg/dL (<150)
== END 2023-12-28 17:48 | disposition home or self-care (01) ==
LOC: NCHCN 17:47
PROVIDERS: PCP Nurse Practitioner Family; Visit Provider Nurse Practitioner Family
DX: E78.5 Hyperlipidemia, unspecified (principal); R73.03 Prediabetes
CPT/HCPCS: 80061; 83036

== ENCOUNTER 2024-04-07 19:22 | Outpatient (REF) | payer OTHER, SELFPAY ==
--- NOTE | 2024-04-07 09:30 | PAPFT_PTH ---
PATIENT: Reji Martini LOC: [facility] U#:[id number] AGE/SX: 64/F ROOM: RE04/07/[address]: Candi Tirado : 1960 BED: DIS: 04/07/2024 SPEC #: [id number] RECD: 04/10/24 13:26 STATUS: KRUNAL REQ #: [id number] MALINDA: 04/07/24 09:[address]: Candi Tirado DEPT: [facility] Cytology RECD BY: Andreea Laurent ENTERED: 04/10/24 13:27 SP TYPE: PAPFT MARILIA DR: JUAN J DAVE, ELIZABETH Tissues: 1 - CX/ENDOCX FOR PAP SMEARS Procedures: PAP THIN PREP/[facility] Screening HPV DNA PROBE Comments: [id number] (HPV 16 & 18/45)
== END 2024-04-07 19:23 | disposition home or self-care (01) ==
LOC: NCHCN 19:22
PROVIDERS: PCP Nurse Practitioner Family; Visit Provider Family Medicine
DX: Z01.419 Encounter for gynecological examination (general) (routine) without abnormal findings (principal); Z12.4 Encounter for screening for malignant neoplasm of cervix
CPT/HCPCS: 88142; 87624

== ENCOUNTER 2024-08-25 16:56 | Outpatient (REF) | payer OTHER, SELFPAY ==
[2024-08-25 16:16] LABS: Calculated LDL 206 mg/dL (<100); Cholesterol 309 mg/dL (<200); HDL Cholesterol 85 mg/dL (>or=50); Triglyceride 90 mg/dL (<150)
[2024-08-25 16:39] LABS: Hemoglobin A1C 5.9 % (<5.7)
[2024-08-30 14:49] LABS: Lipoprotein (a) 37 nmol/L (<75)
== END 2024-08-25 16:57 | disposition home or self-care (01) ==
LOC: NCHCN 16:56
PROVIDERS: PCP Nurse Practitioner Family; Visit Provider Nurse Practitioner Family
DX: R73.03 Prediabetes (principal)
CPT/HCPCS: 80061; 83695; 83036

== ENCOUNTER → 2025-01-30 00:44 | Outpatient (CLI) | payer OTHER, SELFPAY ==
--- NOTE | 2025-01-30 | DI.DEXA_ITS ---
Exam(s) XR DEXA BONE DENSITY W/WO YASMANY EXAM: XR DEXA BONE DENSITY W/WO YASMANY CLINICAL HISTORY: ASYMPTOMATIC MENOPAUSAL STATE Z78.0 TECHNIQUE: COMPARISON: No exams were available for comparison FINDINGS: Lateral Spine Image: Unremarkable. No compression deformities identified. Left hip: Total T-Score: -1.3 Total Z-Score: -0.1 T- and Z-scores: Findings are consistent with osteopenia. Lumbar Spine: Total T-Score: -1.8 Total Z-Score: -0.1 T- and Z-scores: Findings are consistent with osteopenia. There is osteoporosis in the left forearm seen in the mid and proximal thirds with T-scores of -2.5 and -2.9 respectively. IMPRESSION: 1. There is no evidence of osteoporosis in the left hip or lumbar spine. 2. There is osteoporosis in the left forearm.
== END ==
LOC: DI 00:44
PROVIDERS: PCP Nurse Practitioner Family; Visit Provider Family Medicine
DX: M81.0 Age-related osteoporosis without current pathological fracture (principal); Z78.0 Asymptomatic menopausal state
CPT/HCPCS: 77080

== ENCOUNTER → 2025-03-06 00:33 | Outpatient (CLI) | payer OTHER, SELFPAY ==
--- NOTE | 2025-03-06 | DI.MAMMO_ITS ---
Exam(s) MAMMO SCREENING EXAM: MAMMO SCREENING CLINICAL HISTORY: SCREENING,Z12.31 TECHNIQUE: Mammograms were interpreted according to the usual protocol including computer analysis with CAD system, tomosynthesis and C-view imaging. COMPARISON: 2015 through 2023 FINDINGS: The breasts are composed of heterogeneously dense fibroglandular densities, Breast Density category C. No suspicious masses or suspicious microcalcifications are seen. There are surgical clips in the left axillary region, seen on the left MLO image. The patient had a lymph node removed with benign pathology. There has been no change in the more inferiorly located hyperdense lymph node. There are more normal appearing right axillary lymph nodes. No skin thickening or abnormal axillary lymph nodes are seen. There has been no significant change from prior exams. IMPRESSION: BI-RADS Category 2 - Negative Mammogram with benign findings. Yearly screening mammography is recommended. Breast Density: Category C - The breasts are heterogeneously dense, which may obscure small masses. Breast density Category C or D implies that the patient has dense breast tissue. Dense breast tissue can make it harder to find cancer on a mammogram. Dense breast tissue is also associated with an increased risk of breast cancer. This information about the result of the mammogram report was provided to the patient to raise their awareness. Use this report when you speak with the patient about their risks for breast cancer, which includes their family history. At that time, you may recommend additional screening tests (Ultrasound or MRI) as these tests may add significant information. A negative radiographic report should not delay biopsy if a dominant or clinically suspicious mass is present. Up to ten percent of cancers are not identified on mammography. A negative report may reinforce clinical impression. Adenosis and dense breasts may obscure an underlying neoplasm. False positive reports average 6 to 10%.
== END ==
LOC: DI 00:33
PROVIDERS: PCP Nurse Practitioner Family; Visit Provider Family Medicine
DX: Z12.31 Encounter for screening mammogram for malignant neoplasm of breast (principal); R92.323 Mammographic fibroglandular density, bilateral breasts
CPT/HCPCS: 77063; 77067